=== PATIENT | male | born 1995 | race Caucasian/White ===

== ENCOUNTER 2022-10-22 10:03 | Emergency (ER) | payer OTHER, SELFPAY ==
[2022-10-22] VITALS (51 sets, daily range): BP systolic 103–145; BP diastolic 55–90; PULSE 52–141; RESP 10–26; TEMP 36.8; O2SAT 96–100; BMI 26.7
--- NOTE | 2022-10-22 10:12 | DI.RAD.S_ITS ---
PROCEDURE: XR CHEST 1V INDICATIONS: chest pain TECHNIQUE: One view of the chest was acquired. COMPARISON: None. FINDINGS: Surgical changes and devices: None. Lungs and pleura: Lungs are clear. No pleural effusions or pneumothorax. Mediastinum: Mediastinal contours appear normal. Heart size is normal. Bones and chest wall: No suspicious bony lesions. Overlying soft tissues appear unremarkable. IMPRESSION: No acute cardiopulmonary abnormality. Dictated by: Leroy Dewey M.D. on 10/22/2022 at 9:47 Approved by: Leroy Dewey M.D. on 10/22/2022 at 9:48
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
[2022-10-22 10:19] LABS: Add Manual Diff / Slide Review NO; Basophils Absolute Auto 0 /uL (0-100); Basophils Percent Auto 0.3 % (0-2); Eosinophils Absolute Auto 100 /uL (0-450); Eosinophils Percent Auto 2.8 % (2-4); Hematocrit 46.9 % (41-53); Hemoglobin 16.3 g/dL (13.5-17.5); Lymphocytes Absolute Auto 1500 /uL (1100-4500); Lymphocytes Percent Auto 36.3 % (25-40); Mean Corpuscular HGB Conc 34.8 % (30-36); Mean Corpuscular Hemoglobin 29.4 PG (26-34); Mean Corpuscular Volume 84.4 fL (80-100); Monocytes Absolute Auto 800 /uL (0-900); Monocytes Percent Auto 18.8 % (3-14); Neutrophils Absolute Auto 1700 /uL (1500-7000); Neutrophils Percent Auto 41.8 % (50-75); Platelet Count 195 X10^3/uL (150-400); Red Blood Cell Count 5.55 X10^6/uL (4.5-5.9); Red Cell Distribution Width 12.6 % (11.6-14.8)
[2022-10-22 10:25] LABS: INR 1.1 (0.9-1.3); Prothrombin Time 13.1 SECONDS (10.1-12.7)
[2022-10-22 10:29] LABS: D Dimer < 215 ng/ml (<500)
[2022-10-22 10:29] LABS: PTT Partial Thromboplastin Tim 34 SECONDS (26-36)
[2022-10-22 10:31] LABS: Alanine Aminotransferase 30 IU/L (<50); Albumin 4.5 g/dL (3.5-5.0); Albumin Globulin Ratio 1.7 (1.0-2.8); Alkaline Phosphatase 61 U/L (38-126); Aspartate Aminotransferase 41 IU/L (17-59); BUN Creatinine Ratio 17.1 (6-22); Bilirubin Total 1.2 mg/dL (0.2-1.3); Blood Urea Nitrogen 12 mg/dL (9-20); Calcium 9.4 mg/dL (8.4-10.2); Carbon Dioxide 32 mmol/L (22-32); Chloride 99 mmol/L (98-107); Creatine Kinase 429 U/L (55-170); Estimated Glomerular Filt Rate > 60 mL/min (>60); Globulin 2.7 g/dL (1.7-4.1); Glucose 86 mg/dL (70-100); HEMOLYSIS < 15 (0-50); Lipase 35 U/L (23-300); Magnesium 2.2 mg/dL (1.6-2.3); Sodium 137 mmol/L (137-145); Total Protein 7.2 g/dL (6.3-8.2)
[2022-10-22] MEDS: SODIUM CHLORIDE 0.9% 1,000 ML 1000 ML IV (10:33)
[2022-10-22] MEDS: dilTIAZem 5 MG/ML SDV 10 MG IV (10:34)
[2022-10-22 10:40] LABS: NT-proBNP (BNP-Adult 18+) 403 pg/mL (<125)
[2022-10-22 10:43] LABS: Troponin I 0.017 ng/mL (0.01-0.034)
[2022-10-22 10:58] LABS: COVID19 -Nasal RAPID Negative (Negative)
[2022-10-22 11:32] LABS: UR Morphine/Opiate cutoff 300 Negative (Negative); Ur Creatinine Normal (Normal); Ur Specific Gravity Normal (Normal); Urine Amphetamines Negative (Negative); Urine Barbiturates Negative (Negative); Urine Benzodiazepines Negative (Negative); Urine Cocaine Negative (Negative); Urine MDMA Negative (Negative); Urine Methadone Negative (Negative); Urine Methamphetamines Negative (Negative); Urine Oxycodone Negative (Negative); Urine Phencyclidine Negative (Negative); Urine Tetrahydrocannabinol Negative (Negative); Urine Tricyclic Antidepressant Negative (Negative); Urine pH Normal (Normal)
[2022-10-22 11:55] LABS: TSH w/ Reflex to FT4 < 0.02 uIU/mL (0.47-4.68)
[2022-10-22 12:20] LABS: Free T4, Direct Thyroxine 2.51 ng/dL (0.78-2.19)
[2022-10-22 12:55] LABS: Troponin I 0.014 ng/mL (0.01-0.034)
--- NOTE | 2022-10-22 14:00 | DI.ECHO.S_ITS ---
[facility]---------+ [facility] +---------+ : : [address] [address] : : : : [id number] : : : : Phone: [phone] Echocardiogram Report + + :Name: PREM HERNÁNDEZ Study Date: 10/22/2022 Height: 69 in : :[facility] ReadingLocation: Weight: 181 lb : : Gender: Male BSA: 2.0 m2 : :: 1995 Age: 27 yrs BP: 106/59 mmHg: :Reason For Study: AFIB : : Performed By: Chante Erwin : :Referring: MARISA OZUNA : + + Interpretation Summary 1) Normal left ventricular thickness, size, wall motion, and systolic function (EF 55-60%). 2) Normal right ventricular size and function. 3) The right atrium is severely dilated. The left atrium is moderately dilated. 4) No significant valvular abnormalities. 5) No prior Echo available for comparison. Procedure: A two-dimensional transthoracic echocardiogram with color flow and Doppler was performed. The study quality was technically adequate. There is no prior echocardiogram noted for this patient. The patient was in a bradycardic rhythm during the exam. Left Ventricle: The left ventricle appears normal in size, wall thickness, and systolic function without any focal wall motion abnormalities. There is no ventricular septal defect visualized. A false chord is noted (normal variant). The ejection fraction is estimated to be 55-60%. Diastolic parameters suggest a relaxation abnormality of the left ventricle, consistent with probable normal filling pressures. Right Ventricle: The right ventricle is mildly dilated. The right ventricular systolic function is normal. Atria: The left atrium is moderately dilated. The right atrium is severely dilated. There is no Doppler evidence for an interatrial shunt. Mitral Valve: The mitral valve is normal in structure and function. There is trace mitral regurgitation. Aortic Valve: The aortic valve is normal in structure and function. There is no aortic valve stenosis. No aortic regurgitation is present. Tricuspid Valve: The tricuspid valve is normal in structure and function. There is a trace or physiologic amount of tricuspid regurgitation. The right ventricular systolic pressure is estimated to be at least 21 mmHg based on an estimated right atrial pressure of 8 mm Hg. Pulmonic Valve: The pulmonic valve is normal in structure and function. There is mild pulmonic regurgitation. Great Vessels: The aortic root is normal size. The ascending aorta is normal in size. The aortic arch could not be visualized. The pulmonary artery is normal size. The IVC is dilated (diameter is greater than 2.1 cm) yet it collapses greater than 50% with a sniff. This suggests a right atrial pressure of 8 mm Hg. Pericardium/ Pleura There is no pericardial effusion. There is no pleural effusion. MMode/2D Measurements & Calculations LVIDd: 5.6 cm LVOT diam: 2.3 cm LVIDs: 4.1 cm Ao root diam: 3.5 cm FS: 26.0 % asc Aorta Diam: 3.0 cm EPSS: 0.35 cm IVSd: 0.78 cm LVPWd: 0.85 cm LV alfred. diameter/BSA (cm/m^2): 2.8 LV sys. diameter/BSA (cm/m^2): 2.1 LA A2 area: 23.8 cm2 RA long axis: 6.0 cm LA A4 area: 22.0 cm2 RA area: 29.9 cm2 LA length (vol): 6.0 cm RA vol: 126.2 ml LA vol: 73.6 ml RA : 63.8 ml/m2 LA vol index: 37.2 ml/m2 IVC diam: 2.9 cm RVD1 (basal): 5.1 cm TAPSE: 2.4 cm Doppler Measurements & Calculations Ao V2 max: 118.2 cm/sec LVOT Max Amandeep: 83.9 cm/sec Ao V2 mean: 84.4 cm/sec LV V1 max P.8 mmHg Ao max P.6 mmHg LV V1 VTI: 17.9 cm Ao mean P.0 mmHg LONDON(I,D): 3.0 cm2 Ao V2 VTI: 25.6 cm LONDON(V,D): 3.0 cm2 sev ratio: 0.70 LONDON indexed to BSA (cm^2/m^2): 1.5 MV E max amandeep: 48.4 cm/sec TR max amandeep: 183.5 cm/sec MV A max amandeep: 27.2 cm/sec TR max P.5 mmHg MV E/A: 1.8 Med Peak E' Amandeep: 12.6 cm/sec E/E' med: 3.8 Lat Peak E' Amandeep: 16.7 cm/sec E/E' lat: 2.9 E/e' average: 3.4 MV P1/2t: 68.0 msec MV P1/2t max amandeep: 49.1 cm/sec SV(LVOT): 75.5 ml MVA(2t): 3.2 cm2 Reading Physician:03:48 PM
[2022-10-24 13:55] LABS: Anti Thyroglobulin Antibody 8.2 IU/mL (0.0-0.9); Thyroid Peroxidase Antibodies 19 IU/mL (0-34)
== END 2022-10-22 16:26 | disposition home or self-care (01) ==
PROVIDERS: Emergency Medicine; Emergency Provider Emergency Medicine
DX: I48.20 Chronic atrial fibrillation, unspecified (principal); Z79.01 Long term (current) use of anticoagulants; R00.0 Tachycardia, unspecified; R07.9 Chest pain, unspecified; Z20.822 Contact with and (suspected) exposure to COVID-19
CPT/HCPCS: 36415; 71045; 80053; 80305; 82550; 83690; 83735; 83880; 84439; 84443; 84484; 85025; 85379; 85610; 85730; 86376; 86800; 87635; 93005; 93306; 96361; 96374; 99284; C9803

== ENCOUNTER → 2023-02-14 08:07 | Outpatient (CLI) | payer OTHER, SELFPAY ==
--- NOTE | 2023-02-14 08:10 | DI.ECHO.S_ITS ---
[facility] +---------+ [facility] +---------+ : : [address] : [place] : : : : [id number] : : : : Phone: [phone]+ Echocardiogram Report + + :Name: DEBORAHFERDEEPALIPREM SANCHEZ Study Date: 02/14/2023 Height: 69 in : :[facility] ReadingLocation: Weight: 180 lb : : Gender: Male BSA: 2.0 m2 : :: 1995 Age: 27 yrs BP: 110/65 mmHg: :Reason For Study: HEART DISEASE : :Ordering Physician: PEACE, : :BENITA Performed By: Eli Hernandez : :Referring: BENITA HAND : + + Interpretation Summary The ejection fraction is estimated to be 55-60%. Diastolic parameters suggest probable normal left ventricular diastolic function and normal filling pressures. The left atrium is mildly dilated. The right ventricle is mildly dilated. The right ventricular systolic function is normal. The right atrium is moderately dilated. There is moderate tricuspid regurgitation. The right ventricular systolic pressure is estimated to be at least 30 mmHg based on an estimated right atrial pressure of 8 mm Hg. Compared to the prior study dated 10/22/2022, the biatrial size has decrease but the TR has increased. Procedure: A two-dimensional transthoracic echocardiogram with color flow and Doppler was performed. The study quality was technically good. Comparison is made with the echocardiogram of 10/22/2022. The patient was in sinus bradycardia with heart rates between 41-52 bpm during the exam. Left Ventricle: The left ventricle is normal in size and wall thickness. The ejection fraction is estimated to be 55-60%. Diastolic parameters suggest probable normal left ventricular diastolic function and normal filling pressures. Right Ventricle: The right ventricle is mildly dilated. The right ventricular systolic function is normal. Atria: The left atrium is mildly dilated. The right atrium is moderately dilated. There is no Doppler evidence for an interatrial shunt. Mitral Valve: The mitral valve is normal in structure and function. There is trace mitral regurgitation. Aortic Valve: The aortic valve is trileaflet. The aortic valve opens well. There is no aortic valve stenosis. No aortic regurgitation is present. Tricuspid Valve: The tricuspid valve leaflets are thin and pliable. There is moderate tricuspid regurgitation. The right ventricular systolic pressure is estimated to be at least 30 mmHg based on an estimated right atrial pressure of 8 mm Hg. Pulmonic Valve: The pulmonic valve leaflets are thin and pliable; valve motion is normal. There is trace pulmonic regurgitation. Great Vessels: The aortic root is normal size. The dimensions of the ascending aorta are normal. The IVC is dilated (diameter is greater than 2.1 cm) yet it collapses greater than 50% with a sniff. This suggests a right atrial pressure of 8 mm Hg. Pericardium/ Pleura There is no pericardial effusion. There is no pleural effusion. MMode/2D Measurements & Calculations LVIDd: 5.6 cm LVOT diam: 2.1 cm LVIDs: 4.0 cm Ao root diam: 3.3 cm FS: 28.0 % asc Aorta Diam: 3.1 cm EPSS: 0.69 cm Ao Arch Diam (Prox Trans): 2.7 cm IVSd: 0.85 cm LVPWd: 0.87 cm LV alfred. diameter/BSA (cm/m^2): 2.8 LV sys. diameter/BSA (cm/m^2): 2.0 LA A2 area: 23.2 cm2 RA long axis: 6.1 cm LA A4 area: 24.3 cm2 RA area: 25.3 cm2 LA length (vol): 5.8 cm RA vol: 88.7 ml LA vol: 82.8 ml RA : 44.9 ml/m2 LA vol index: 41.9 ml/m2 IVC diam: 2.8 cm RVD1 (basal): 4.2 cm RVD2 (mid): 2.9 cm TAPSE: 2.7 cm Doppler Measurements & Calculations Ao V2 max: 101.5 cm/sec LVOT Max Gilberto: 103.5 cm/sec Ao V2 mean: 69.7 cm/sec LV V1 max P.3 mmHg Ao max P.1 mmHg LV V1 VTI: 23.2 cm Ao mean P.2 mmHg LONDON(I,D): 3.3 cm2 Ao V2 VTI: 23.6 cm LONDON(V,D): 3.4 cm2 sev ratio: 0.98 LONDON indexed to BSA (cm^2/m^2): 1.6 MV E max gilberto: 59.5 cm/sec TR max gilberto: 233.3 cm/sec MV A max gilberto: 25.9 cm/sec TR max P.8 mmHg MV E/A: 2.3 PA V2 max: 110.4 cm/sec Med Peak E' Gilberto: 13.0 cm/sec PA V2 mean: 72.1 cm/sec E/E' med: 4.6 PA mean P.4 mmHg Lat Peak E' Gilberto: 16.2 cm/sec PA pr(Accel): 27.6 mmHg E/E' lat: 3.7 E/e' average: 4.1 MV dec time: 0.15 sec SV(LVOT): 76.7 ml Reading Physician:07:18 PM
== END ==
PROVIDERS: PCP Preventive Medicine Aerospace Medicine; Referring Provider Chiropractor; Visit Provider Chiropractor
DX: I48.91 Unspecified atrial fibrillation (principal); I07.1 Rheumatic tricuspid insufficiency
CPT/HCPCS: 93306

== ENCOUNTER → 2023-09-03 07:58 | Outpatient (CLI) | payer OTHER, SELFPAY ==
--- NOTE | 2023-09-03 08:00 | DI.ECHO.S_ITS ---
[facility] +---------+ [facility] : : [address] : : [place] : : [id number] : : Phone: [phone] Echocardiogram Report + + :Name: PREM HERNÁNDEZ Study Date: 09/03/2023 Height: 69 in : :Hospital ReadingLocation: Weight: 185 lb : : Gender: Male BSA: 2.0 m2 : :: 1995 Age: 28 yrs BP: 123/67 mmHg: :Reason For Study: CHRONIC ISCHEMIC HEART DISEASE : :Ordering Physician: PEACE, : :BENITA Performed By: Robert Alexis : :Referring: BENITA HAND : + + Interpretation Summary Normal left ventricle size with ejection fraction 55-60%. Mild biatrial enlargement. No significant valvular abnormality. Procedure: A two-dimensional transthoracic echocardiogram with color flow and Doppler was performed. The study quality was technically adequate. Comparison is made with the echocardiogram of 02/14/2023. The patient was in sinus bradycardia with heart rates between 41-50 bpm during the exam. Left Ventricle: The left ventricle is normal in size and wall thickness. The ejection fraction is estimated to be 55-60%. There are no focal wall motion abnormalities. Diastolic parameters suggest probable normal left ventricular diastolic function and normal filling pressures. Right Ventricle: The right ventricle is normal in size and function. Atria: There is mild biatrial enlargement. The interatrial septum grossly appears intact with no obvious evidence for an atrial septal defect. Mitral Valve: The mitral valve is normal in structure and function. There is no mitral valve stenosis. There is trace mitral regurgitation. Aortic Valve: The aortic valve is trileaflet. There is no aortic valve stenosis. No aortic regurgitation is present. Tricuspid Valve: The tricuspid valve is normal in structure and function. There is no tricuspid stenosis. There is trace tricuspid regurgitation. The right ventricular systolic pressure is estimated to be at least 32 mmHg based on an estimated right atrial pressure of 8 mm Hg. Pulmonic Valve: The pulmonic valve is not well visualized. There is no pulmonic valvular stenosis. There is no pulmonic valvular regurgitation. Great Vessels: The aortic root is normal size. The dimensions of the ascending aorta are normal. The IVC is dilated (diameter is greater than 2.1 cm) yet it collapses greater than 50% with a sniff. This suggests a right atrial pressure of 8 mm Hg. Pericardium/ Pleura There is no pericardial effusion. There is no pleural effusion. MMode/2D Measurements & Calculations LVIDd: 5.7 cm LVOT diam: 2.0 cm LVIDs: 4.0 cm Ao root diam: 3.4 cm FS: 30.2 % asc Aorta Diam: 2.9 cm IVSd: 0.97 cm LVPWd: 0.93 cm LV alfred. diameter/BSA (cm/m^2): 2.8 LV sys. diameter/BSA (cm/m^2): 2.0 LA A2 area: 27.6 cm2 RA long axis: 4.9 cm LA A4 area: 23.7 cm2 RA area: 20.3 cm2 LA length (vol): 5.8 cm RA vol: 72.3 ml LA vol: 96.4 ml RA : 36.2 ml/m2 LA vol index: 48.2 ml/m2 IVC diam: 3.0 cm RVD1 (basal): 4.2 cm RVD2 (mid): 3.3 cm TAPSE: 3.3 cm Doppler Measurements & Calculations Ao V2 max: 147.9 cm/sec LVOT Max Amandeep: 121.8 cm/sec Ao V2 mean: 101.1 cm/sec LV V1 max P.9 mmHg Ao max P.8 mmHg LV V1 VTI: 26.6 cm Ao mean P.7 mmHg LONDON(I,D): 2.4 cm2 Ao V2 VTI: 35.8 cm LONDON(V,D): 2.7 cm2 sev ratio: 0.74 LONDON indexed to BSA (cm^2/m^2): 1.2 MV E max amandeep: 51.6 cm/sec TR max amandeep: 246.1 cm/sec MV A max amandeep: 29.9 cm/sec TR max P.2 mmHg MV E/A: 1.7 PA V2 max: 107.3 cm/sec Med Peak E' Amandeep: 11.5 cm/sec PA V2 mean: 75.9 cm/sec E/E' med: 4.5 PA mean P.5 mmHg Lat Peak E' Amandeep: 13.3 cm/sec PA pr(Accel): 17.3 mmHg E/E' lat: 3.9 E/e' average: 4.2 MV dec time: 0.21 sec SV(LVOT): 86.1 ml Electronically signed by: Jason Dickinson on Reading Physician:09/03/2023 10:58 AM
== END ==
LOC: ECHO 08:00
PROVIDERS: PCP Family Medicine; Referring Provider Chiropractor; Visit Provider Chiropractor
DX: I25.9 Chronic ischemic heart disease, unspecified (principal)
CPT/HCPCS: 93306

== ENCOUNTER → 2023-10-09 11:10 | Outpatient (CLI) | payer OTHER, SELFPAY ==
[2023-10-09 12:56] LABS: Free T3, Triiodothyronine Free 3.64 pg/mL (2.77-5.27)
[2023-10-09 13:10] LABS: Thyroid Stimulating Hormone 1.04 uIU/mL (0.47-4.68)
[2023-10-13 04:37] LABS: Thyroxine Binding Globulin 18 ug/mL (13-39)
== END ==
PROVIDERS: PCP Family Medicine; Referring Provider Chiropractor; Visit Provider Chiropractor
DX: E03.9 Hypothyroidism, unspecified (principal)
CPT/HCPCS: 36415; 84442; 84443; 84481

== ENCOUNTER → 2023-11-01 13:29 | Outpatient (CLI) | payer OTHER, SELFPAY ==
[2023-11-01 15:06] LABS: Free T4, Direct Thyroxine 1.25 ng/dL (0.78-2.19)
== END ==
LOC: LAB 13:30
PROVIDERS: PCP Family Medicine; Referring Provider Chiropractor; Visit Provider Chiropractor
DX: E03.9 Hypothyroidism, unspecified (principal)
CPT/HCPCS: 36415; 84439

== ENCOUNTER → 2024-10-22 10:54 | Outpatient (CLI) | payer OTHER, SELFPAY ==
[2024-10-22 11:36] LABS: Add Manual Diff / Slide Review NO; Hematocrit 42.1 % (41-53); Hemoglobin 14.5 g/dL (13.5-17.5); Lymphocytes Absolute Auto 1400 /uL (1100-4500); Mean Corpuscular HGB Conc 34.5 % (30-36); Mean Corpuscular Hemoglobin 30.1 PG (26-34); Mean Corpuscular Volume 87.1 fL (80-100); Platelet Count 197 X10^3/uL (150-400)
[2024-10-22 12:03] LABS: Alanine Aminotransferase 28 IU/L (<50); Albumin 4.7 g/dL (3.5-5.0); Albumin Globulin Ratio 2.2 (1.0-2.8); Alkaline Phosphatase 49 U/L (38-126); Globulin 2.1 g/dL (1.7-4.1); HEMOLYSIS < 15 (0-50); Total Protein 6.8 g/dL (6.3-8.2)
[2024-10-22 12:25] LABS: Free T3, Triiodothyronine Free 3.84 pg/mL (2.77-5.27); Free T4, Direct Thyroxine 1.17 ng/dL (0.78-2.19)
[2024-10-22 12:39] LABS: Thyroid Stimulating Hormone 1.14 uIU/mL (0.47-4.68)
== END ==
PROVIDERS: PCP Family Medicine; Referring Provider Student in an Organized Health Care Education/Training Program; Visit Provider Student in an Organized Health Care Education/Training Program
DX: E05.90 Thyrotoxicosis, unspecified without thyrotoxic crisis or storm (principal)
CPT/HCPCS: 36415; 80076; 84439; 84443; 84481; 85025